=== PATIENT | female | born 1965 | race Caucasian/White ===

== ENCOUNTER 2023-03-17 11:02 | Outpatient (OUT) | payer OTHER, SELFPAY ==
--- NOTE | 2023-03-17 11:17 | XR_ITS ---
The [place] [id number] Patient Name: LASHAWN SARMIENTO MRN: [id number] date: 1965 Sex: F Assigned Patient Location: [facility] Current Patient Location: [facility] Accession/Order Number: [id number] Exam Date: 03/17/2023 11:16 Report Date: 03/17/2023 16:23 At the request of: LIDYA OSUNA Procedure: XR ankle RT min 3V PROCEDURE: XR ankle RT min 3V HISTORY: RIGHT ANKLE PAIN COMPARISON: XR ankle right 12/23/2022 FINDINGS: BONES:Mechanical fusion of the ankle joint and hindfoot via intramedullary priyanka and locking screws. Prosthetic spacer replacement of the talus. Degenerative changes of the midfoot. SOFT TISSUES:Moderate soft tissue swelling surrounding the ankle, stable. EFFUSION:None visible. OTHER: Negative. IMPRESSION: 1. Stable surgical changes without evidence of hardware failure or change in alignment. Electronically authenticated by: NEHEMIAS SILVA Date: 03/17/2023 16:23
== END 2023-03-17 11:03 ==
LOC: RAD 11:02
PROVIDERS: PCP Podiatrist Foot & Ankle Surgery; Visit Provider Podiatrist Foot & Ankle Surgery
DX: M19.071 Primary osteoarthritis, right ankle and foot (principal)
CPT/HCPCS: 73610

== ENCOUNTER 2023-06-16 11:29 | Outpatient (OUT) | payer OTHER, SELFPAY ==
--- NOTE | 2023-06-16 | XR_ITS ---
The [address] [address] Patient Name: LASHAWN SARMIENTO MRN: [id number] date: 1965 Sex: F Assigned Patient Location: [facility] Current Patient Location: [facility] Accession/Order Number: [id number] Exam Date: 06/16/2023 11:29 Report Date: 06/16/2023 12:15 At the request of: LIDYA OSUNA Procedure: XR ankle RT min 3V PROCEDURE: XR ankle RT min 3V DATE: 06/16/2023 10:29 AM CDT COMPARISONS: 03/17/2023 CLINICAL INDICATION: RIGHT ANKLE PAIN FINDINGS: Fusion of the ankle and hindfoot is again identified. There is a mid and distal tibial intramedullary priyanka extending through the expected region of the talus with a horizontal locking screw of the inferior talus. There also appears to be a oblique screw fusing the posterior subtalar joint. The talus is not well-visualized on these images possibly removed or partially removed. There is a moderate-sized heel spur There is diffuse bone demineralization, stable. There is mid foot degenerative changes as before. There is resection of the distal fibula as before. XR/XR ankle RT min 3V IMPRESSION: Fusion of the ankle and hindfoot, stable. Bone demineralization, stable. Electronically authenticated by: PEYTON SWANSON Date: 06/16/2023 12:15
== END 2023-06-16 11:30 | disposition home or self-care (01) ==
LOC: RAD 11:31
PROVIDERS: Visit Provider Podiatrist Foot & Ankle Surgery
DX: M25.571 Pain in right ankle and joints of right foot (principal)
CPT/HCPCS: 73610

== ENCOUNTER 2024-01-19 15:11 | Outpatient (OUT) | payer OTHER, SELFPAY ==
--- NOTE | 2024-01-19 | XR_ITS ---
[address] [address] Patient Name: LASHAWN SARMIENTO MRN: [id number] date: 1965 Sex: F Assigned Patient Location: Current Patient Location: Accession/Order Number: [id number] Exam Date: 01/19/2024 15:15 Report Date: 01/19/2024 15:51 At the request of: LIDYA OSUNA Procedure: XR ankle WAYNE min 3V EXAMINATION: XR ankle WAYNE min 3V, XR foot LT min 3V HISTORY: BILATERAL ANKLE PAIN COMPARISON: 06/16/2023 FINDINGS: RIGHT FINDINGS: BONES: No acute fracture or dislocation. Moderate to severe degenerative changes of the midfoot and hindfoot with [id number] articulation the tibiotalar joint. Heterotopic ossification along the posterior talus. SOFT TISSUES: Moderate soft tissue swelling OTHER: Negative. LEFT FINDINGS: BONES: Stable ankle fusion with talus replacement. No acute fracture, dislocation or mechanical failure. Underlying degenerative changes SOFT TISSUES: Diffuse soft tissue swelling OTHER: Negative. XR/XR ankle WAYNE min 3V IMPRESSION: RIGHT CONCLUSION: Moderate to severe osteoarthritis with [id number] articulation of the tibiotalar joint LEFT CONCLUSION: Stable ankle fusion with talus replacement Electronically authenticated by: GOPI DIEGO Date: 01/19/2024 15:51
--- NOTE | 2024-01-19 | XR_ITS ---
[address] [address] Patient Name: LASHAWN SARMIENTO MRN: [id number] date: 1965 Sex: F Assigned Patient Location: Current Patient Location: Accession/Order Number: [id number] Exam Date: 01/19/2024 15:15 Report Date: 01/19/2024 15:51 At the request of: LIDYA OSUNA Procedure: XR foot LT min 3V EXAMINATION: XR ankle WAYNE min 3V, XR foot LT min 3V HISTORY: BILATERAL ANKLE PAIN COMPARISON: 06/16/2023 FINDINGS: RIGHT FINDINGS: BONES: No acute fracture or dislocation. Moderate to severe degenerative changes of the midfoot and hindfoot with [id number] articulation the tibiotalar joint. Heterotopic ossification along the posterior talus. SOFT TISSUES: Moderate soft tissue swelling OTHER: Negative. LEFT FINDINGS: BONES: Stable ankle fusion with talus replacement. No acute fracture, dislocation or mechanical failure. Underlying degenerative changes SOFT TISSUES: Diffuse soft tissue swelling OTHER: Negative. XR/XR foot LT min 3V IMPRESSION: RIGHT CONCLUSION: Moderate to severe osteoarthritis with [id number] articulation of the tibiotalar joint LEFT CONCLUSION: Stable ankle fusion with talus replacement Electronically authenticated by: GOPI DIEGO Date: 01/19/2024 15:51
== END 2024-01-19 15:12 | disposition home or self-care (01) ==
LOC: EC 15:12
PROVIDERS: Visit Provider Podiatrist Foot & Ankle Surgery
DX: M25.572 Pain in left ankle and joints of left foot (principal); M25.571 Pain in right ankle and joints of right foot; Z98.890 Other specified postprocedural states; M19.071 Primary osteoarthritis, right ankle and foot; Z96.662 Presence of left artificial ankle joint
CPT/HCPCS: 73610; 73630